=== PATIENT | male | born 1945 | race African-American/Black ===

== ENCOUNTER 2020-08-10 06:26 | Inpatient (IN) | payer MEDICARE ==
[~2020-08-10] VITALS: Ht 172.7 cm; Wt 76.8 kg
[2020-08-10] MEDS ORDERED: SODIUM CHLORIDE 0.9% 500 ML IV ONE (07:00)
[2020-08-10 08:10] LABS: CHLORIDE 103 mEq/L (98-107)
[2020-08-10 08:12] LABS: BASOPHILS % 0.4 % (0.0-2.0); EOSINOPHILS % 1.5 % (0.0-5.0); HEMATOCRIT. 35.1 % (42.0-52.0); HEMOGLOBIN. 11.2 g/dL (14.0-18.0); LYMPHOCYTES % 23.8 % (20.0-50.0); MEAN CORPUSCULAR HEMOGLOBIN 23.8 pg (28.0-32.0); MEAN CORPUSCULAR VOLUME 74.8 fL (80.0-94.0); MONOCYTES % 7.1 % (2.0-8.0); NEUTROPHILS % 67.2 % (40.0-76.0); PLATELET 142 x1000/uL (130-400); RED BLOOD CELL COUNT 4.69 mill/uL (4.7-6.1); RED CELL DISTRIBUTION WIDTH 23.1 % (11.6-14.6)
[2020-08-10] MEDS ORDERED: MORPHINE SULFATE 4 MG/ML CPJ (NOT FOR IM USE) IV PRN (08:15)
[2020-08-10] MEDS ORDERED: MORPHINE SULFATE 2 MG/ML CPJ (NOT FOR IM USE) IV ONE (08:15)
[2020-08-10 08:34] LABS: INR 1.3; PROTHROMBIN TIME 13.9 sec (9.6-11.0)
[2020-08-10 08:45] LABS: PLATELET ESTIMATE NORMAL
[2020-08-10] MEDS ORDERED: IOHEXOL-300 100 ML BOTTLE ONE (09:04)
[2020-08-10] MEDS ORDERED: DIPHENHYDRAMINE 50MG/ML VIAL IV PRN (12:45)
[2020-08-10] MEDS ORDERED: MORPHINE SULFATE 2 MG/ML CPJ (NOT FOR IM USE) IV PRN (12:45)
[2020-08-10] MEDS ORDERED: IPRATROPIUM/ALBUTEROL 0.5-3(2.5)MG/3ML NEB HHN PRN (12:45)
[2020-08-10] MEDS ORDERED: ACETAMINOPHEN 325MG TABLET PO PRN (12:45)
[2020-08-10] MEDS ORDERED: ONDANSETRON HCL 4MG/2ML INJ IV PRN (12:45)
[2020-08-10] MEDS: CLONIDINE 0.1MG TABLET PO PRN (14:19)
[2020-08-10] MEDS: SODIUM CHLORIDE 0.9% 1,000 ML IV SCH (14:20)
[2020-08-10] MEDS: HYDRALAZINE 20MG/ML VIAL IV SCH (18:30)
[2020-08-10 20:00] VITALS: BP 188/74
[2020-08-10] MEDS ORDERED: DEXTROSE 50% WATER 50ML SYRINGE IV PRN (20:30)
[2020-08-10] MEDS: BLOOD SUGAR DIAGNOSTIC STRIP TEST SCH (21:00)
[2020-08-10] MEDS: AMLODIPINE 5MG TABLET PO SCH (21:04)
[2020-08-10] MEDS: INSULIN LISPRO 100 UNITS/ML SUBCUT SCH (21:05)
[2020-08-10 23:53] VITALS: BP 188/74
[2020-08-11] VITALS (7 sets, daily range): BP systolic 107–180; BP diastolic 56–81
[2020-08-11] MEDS: SODIUM CHLORIDE 0.9% 1,000 ML IV SCH ×2 (00:18→14:50)
[2020-08-11] MEDS: HYDRALAZINE 20MG/ML VIAL IV SCH ×4 (00:19→17:47)
[2020-08-11] MEDS ORDERED: METO25TA6 PO (00:43)
[2020-08-11] MEDS ORDERED: PANT20TA17 PO (00:43)
[2020-08-11] MEDS ORDERED: SERT-422 MT (00:43)
[2020-08-11] MEDS ORDERED: RIVA10TA PO (00:43)
[2020-08-11] MEDS ORDERED: FOLI-43 MT (00:43)
[2020-08-11] MEDS ORDERED: FERR324T4 PO (00:43)
[2020-08-11] MEDS ORDERED: TENO25TA MT (00:43)
[2020-08-11 06:17] LABS: BASOPHILS % 0.3 % (0.0-2.0); EOSINOPHILS % 1.2 % (0.0-5.0); HEMATOCRIT. 32.1 % (42.0-52.0); HEMOGLOBIN. 10.5 g/dL (14.0-18.0); LYMPHOCYTES % 16.3 % (20.0-50.0); MEAN CORPUSCULAR HEMOGLOBIN 24.3 pg (28.0-32.0); MEAN CORPUSCULAR VOLUME 74.4 fL (80.0-94.0); MEAN PLATELET VOLUME 7.6 fl (7.4-10.4); MONOCYTES % 7.2 % (2.0-8.0); PLATELET 121 x1000/uL (130-400); RED BLOOD CELL COUNT 4.31 mill/uL (4.7-6.1); RED CELL DISTRIBUTION WIDTH 23.2 % (11.6-14.6)
[2020-08-11] MEDS: BLOOD SUGAR DIAGNOSTIC STRIP TEST SCH ×4 (06:28→21:00)
[2020-08-11 06:38] LABS: CHLORIDE 106 mEq/L (98-107)
[2020-08-11 06:55] LABS: LDL CHOLESTEROL 69 mg/dL (5-100)
[2020-08-11 06:57] LABS: HDL CHOLESTEROL 49 mg/dL (40-59)
[2020-08-11] MEDS: INSULIN LISPRO 100 UNITS/ML SUBCUT SCH ×4 (07:15→21:00)
[2020-08-11] MEDS: AMLODIPINE 5MG TABLET PO SCH ×2 (09:25→21:00)
[2020-08-11 10:14] LABS: T4 FREE 1.01 ng/dL (0.76-1.46)
[2020-08-11] MEDS: FOLIC ACID 1MG TABLET PO SCH (13:53)
[2020-08-11] MEDS: METOPROLOL TARTRATE 25MG TABLET PO SCH (13:53)
[2020-08-11 15:25] LABS: CLARITY URINE CLEAR (CLEAR); COLOR URINE YELLOW (YELLOW); KETONES URINE 1+ (NEGATIVE); LEUKOCYTE ESTERASE URINE NEGATIVE (NEGATIVE); NITRITE URINE NEGATIVE (NEGATIVE); OCCULT BLOOD URINE NEGATIVE (NEGATIVE); PROTEIN URINE 2+ (NEGATIVE); SPECIFIC GRAVITY URINE 1.018 (1.005-1.030)
[2020-08-11] MEDS: FERROUS SULFATE 325MG TABLET PO SCH (17:47)
[2020-08-12] VITALS: BP 159/78
[2020-08-12] MEDS: HYDRALAZINE 20MG/ML VIAL IV SCH ×4 (01:00→18:09)
[2020-08-12 04:00] VITALS: BP 142/55
[2020-08-12 06:00] LABS: CHLORIDE 105 mEq/L (98-107)
[2020-08-12 06:03] LABS: BASOPHILS % 0.3 % (0.0-2.0); EOSINOPHILS % 0.9 % (0.0-5.0); HEMATOCRIT. 34.4 % (42.0-52.0); HEMOGLOBIN. 11.2 g/dL (14.0-18.0); LYMPHOCYTES % 13.8 % (20.0-50.0); MEAN CORPUSCULAR HEMOGLOBIN 24.5 pg (28.0-32.0); MEAN PLATELET VOLUME 7.9 fl (7.4-10.4); MONOCYTES % 6.3 % (2.0-8.0); NEUTROPHILS % 78.7 % (40.0-76.0); PLATELET 133 x1000/uL (130-400); RED BLOOD CELL COUNT 4.58 mill/uL (4.7-6.1)
[2020-08-12] MEDS: OMEPRAZOLE 20MG CAPSULE EXTENDED RELEASE PO SCH (06:37)
[2020-08-12] MEDS: FERROUS SULFATE 325MG TABLET PO SCH ×3 (06:37→18:09)
[2020-08-12] MEDS: SODIUM CHLORIDE 0.9% 1,000 ML IV SCH ×2 (06:38→09:47)
[2020-08-12] MEDS: BLOOD SUGAR DIAGNOSTIC STRIP TEST SCH ×4 (06:43→21:51)
[2020-08-12] MEDS: INSULIN LISPRO 100 UNITS/ML SUBCUT SCH ×4 (06:43→21:00)
[2020-08-12] MEDS ORDERED: PANTOPRAZOLE 40MG DR TABLET PO SCH (06:45)
[2020-08-12 08:00] VITALS: BP 168/66
[2020-08-12] MEDS: METOPROLOL TARTRATE 25MG TABLET PO SCH (09:46)
[2020-08-12] MEDS: RIVAROXABAN 10 MG TABLET PO SCH (09:46)
[2020-08-12] MEDS: SERTRALINE HCL 50MG TABLET PO SCH (09:46)
[2020-08-12] MEDS: CLONIDINE 0.1MG TABLET PO PRN (09:46)
[2020-08-12] MEDS: AMLODIPINE 5MG TABLET PO SCH ×2 (09:47→21:51)
[2020-08-12] MEDS: FOLIC ACID 1MG TABLET PO SCH (09:47)
[2020-08-12 12:00] VITALS: BP 110/74
[2020-08-12 16:00] VITALS: BP 156/69
[2020-08-12 20:00] VITALS: BP 122/86
[2020-08-12 22:15] LABS: ETHANOL BLOOD < 10 mg/dL
[2020-08-12 22:21] LABS: T4 FREE 1.02 ng/dL (0.76-1.46)
[2020-08-12 22:37] LABS: FOLIC ACID (FOLATE) SERUM >20 ng/mL ng/mL (>5.38)
[2020-08-12 22:49] LABS: VITAMIN B12 SERUM 633 pg/mL (211-911)
[2020-08-13] VITALS: BP 174/75
[2020-08-13] MEDS: HYDRALAZINE 20MG/ML VIAL IV SCH ×4 (01:19→17:27)
[2020-08-13 04:00] VITALS: BP 145/71
[2020-08-13] MEDS: INSULIN LISPRO 100 UNITS/ML SUBCUT SCH ×3 (06:16→17:06)
[2020-08-13] MEDS: BLOOD SUGAR DIAGNOSTIC STRIP TEST SCH ×3 (06:16→17:05)
[2020-08-13] MEDS: FERROUS SULFATE 325MG TABLET PO SCH ×3 (06:21→17:27)
[2020-08-13] MEDS: OMEPRAZOLE 20MG CAPSULE EXTENDED RELEASE PO SCH (06:21)
[2020-08-13] MEDS: SODIUM CHLORIDE 0.9% 1,000 ML IV SCH (06:22)
[2020-08-13 08:00] VITALS: BP 128/59
[2020-08-13] MEDS ORDERED: GADOTERATE MEGLUMINE 5 MMOL/10 ML VIAL IV ONE (09:22)
[2020-08-13] MEDS: AMLODIPINE 5MG TABLET PO SCH (10:00)
[2020-08-13] MEDS: RIVAROXABAN 10 MG TABLET PO SCH (10:00)
[2020-08-13] MEDS: FOLIC ACID 1MG TABLET PO SCH (10:01)
[2020-08-13] MEDS: SERTRALINE HCL 50MG TABLET PO SCH (10:01)
[2020-08-13] MEDS: METOPROLOL TARTRATE 25MG TABLET PO SCH (10:04)
[2020-08-13 12:00] VITALS: BP 158/66
[2020-08-13 16:00] VITALS: BP 154/72
== END 2020-08-13 19:00 | disposition left against medical advice (07) | DRG 73 ==
LOC: ER 06:26 → 5WST 13:09 → EDBEDREQSVC 18:01 → ENRESERV 18:04
PROVIDERS: ADMIT Internal Medicine; ATTEND Internal Medicine
PROC: 4A00X4Z Measurement of Central Nervous Electrical Activity, External Approach (ICD-10-PCS; principal; 2020-08-13)
DX: G90.8 Other disorders of autonomic nervous system (principal); G92 Toxic encephalopathy; C64.2 Malignant neoplasm of left kidney, except renal pelvis; C22.9 Malignant neoplasm of liver, not specified as primary or secondary; I10 Essential (primary) hypertension; I48.91 Unspecified atrial fibrillation; J44.9 Chronic obstructive pulmonary disease, unspecified; N40.0 Benign prostatic hyperplasia without lower urinary tract symptoms; R29.6 Repeated falls; R62.7 Adult failure to thrive; Z87.891 Personal history of nicotine dependence; Z91.81 History of falling; Z92.21 Personal history of antineoplastic chemotherapy; D64.9 Anemia, unspecified; F32.9 Major depressive disorder, single episode, unspecified; D49.0 Neoplasm of unspecified behavior of digestive system; Z53.29 Procedure and treatment not carried out because of patient's decision for other reasons; G95.20 Unspecified cord compression; M48.02 Spinal stenosis, cervical region; M48.04 Spinal stenosis, thoracic region; M48.061 Spinal stenosis, lumbar region without neurogenic claudication; M47.816 Spondylosis without myelopathy or radiculopathy, lumbar region; W18.39XA Other fall on same level, initial encounter; Y93.89 Activity, other specified; Y92.89 Other specified places as the place of occurrence of the external cause; Y99.8 Other external cause status; F03.90 Unspecified dementia, unspecified severity, without behavioral disturbance, psychotic disturbance, mood disturbance, and anxiety; E11.65 Type 2 diabetes mellitus with hyperglycemia
CPT/HCPCS: 36415; 70553; 71045; 71260; 72141; 72146; 72148; 74177; 80048; 80053; 80061; 80320; 81003; 82105; 82140; 82378; 82607; 82746; 82962; 83036; 83605; 83880; 84439; 84443; 84481; 84484; 85025; 86850; 86900; 93005; 93970; 99285; A9577; J0360; J1815; J2270; J7040; Q9967; A4315; G0480